=== PATIENT | female | born 1985 | race African-American/Black ===

== ENCOUNTER 2016-07-28 14:12 | Inpatient (IN) | payer OTHER ==
--- NOTE | ~2016-07-28 | PN ---
Unit #: [id number] #: [id number] Patient: GAUDENCIO RODRIGUEZ [id number] [facility] [address] [place] [address] [id number] I MR#: [id number] NAME: GAUDENCIO RODRIGUEZ ROOM: [facility]3 Age: 30 Sex: F Admission Date: 07/28/2016 : 1985 Attending Physician: Berhane Lord M.D. Admitting Physician: Berhane Lord M.D. Primary Care Physician: Generic Doctor Not In System [facility] PROGRESS NOTES DATE OF SERVICE 08/03/2016 DISCUSSION Ms. Gaudencio Rodriguez is a 30-year-old female seen on 08/03/2016. The patient interviewed, chart reviewed. Obtained information from nursing staff. The patient was compliant, cooperative. Mood sad, dysphoric, isolative, guarded. The patient reported that she is still hearing voices. Voices telling her to harm herself. The patient was given p.r.n. Zyprexa Zydis 10 mg now dose. Complete Review of Systems: Unremarkable. MENTAL STATUS EXAMINATION General Appearance: The patient dressed casually. Attention span, concentration: Fair to poor. Oriented in place and person. Mood and affect: Sad, dysphoric, flat. Speech: Monotone. Thought process: [place]. The patient reported having suicidal ideation, command hallucination. Recent and remote memory: Poor. Insight and judgment: Poor. DIAGNOSIS Schizophrenia, chronic, paranoid type. ASSESSMENT/PLAN Advised to increase Clozaril 200 mg in the morning and 200 mg at bedtime. Advise Zyprexa Zydis 10 mg now. We will continue to follow. If needed, consider further adjustment of medication. Continue with the inpatient program for safety of the patient at this time. Dictated by... Drea Johnson/dania TD: 08/04/2016 13:34 JOB #: [id number] Unit #: [id number] #: [id number] Patient: GAUDENCIO RODRIGUEZ PROGRESS NOTES Page 1 of 1 X Berhane Lord MD X PROGRESS NOTE
--- NOTE | ~2016-07-28 | PA ---
Unit #: [id number] #: [id number] Patient: GAUDENCIO GIRALDO [id number] [facility] [address] [place] [address] [id number] I MR#: [id number] NAME: GAUDENCIO GIRALDO ROOM: [facility]3 Age: 30 Sex: F Admission Date: 07/28/2016 : 1985 Date of Assessment: Attending Physician: Berhane Lord M.D. Admitting Physician: Berhane Lord M.D. PSYCHIATRIC ASSESSMENT INFORMANTS The patient reliability, poor informant and chart reliability, good. CHIEF COMPLAINT Thoughts of harming self and hearing voices. HISTORY OF PRESENT ILLNESS Ms. Gaudencio Giraldo is a 30-year-old female, seen on . The patient has a history of outpatient services in 2007 at [facility]. The patient reports she had no medicine and not been in the hospital for the last 10 years. The patient reports that she attempted to kill herself, hearing voices to kill herself. The patient reported "I want to ." The patient reported that she has been feeling suicidal, reported she holds stuff and reports letting it out today. The patient was agitated, mad, angry, and disorganized thought process and behavior. The patient was agitated, increasingly aggressive, independently hitting franco, needing redirection. Unable to give reliable information. Needing admission at this time for psychiatric stabilization. PAST PSYCHIATRIC HISTORY Remarkable for history of previous treatment from [facility] in 2007. FAMILY HISTORY AND SOCIAL HISTORY The patient has poor support system. History of substance abuse in mother. No history of any abuse known at this time. MEDICAL HISTORY Unremarkable for any chronic medical illness. Musculoskeletal; muscle strength and tone, no atrophy or abnormal movement. Gait normal. MEDICATION HISTORY The patient is currently on Minipress 1 mg at bedtime, Luvox 100 mg at bedtime, Clozaril 200 mg at bedtime, Cogentin 1 mg b.i.d., Topamax 100 mg t.i.d., and fluphenazine decanoate 25 mg q.21 days. The patient is also on Adderall. ALLERGIES No known drug allergies. SUBSTANCE ABUSE HISTORY None. Unit #: [id number] #: [id number] Patient: MICHAEL,KENYANA REVIEW OF SYSTEMS HEENT: Eyes, clear. Ears, nose, mouth, and throat; clear. CARDIOVASCULAR: Unremarkable. RESPIRATORY: Unremarkable. GI: Unremarkable. : Unremarkable. SKIN: Unremarkable. LYMPH NODE: Unremarkable. NEUROLOGIC: Unremarkable. ENDOCRINE: Unremarkable. HEMATOLOGIC: Unremarkable. ALLERGIC/IMMUNOLOGIC: Unremarkable. MUSCULOSKELETAL: Muscle strength and tone, no atrophy or abnormal movement. Gait normal. MENTAL STATUS EXAMINATION CONSTITUTIONAL: Measurement of vital signs; temperature 98.0, heart rate 119, respiratory rate 16, oxygen saturation 100%, and blood pressure 155/95. Height 5 feet 9 inches and weight is 215 pounds. GENERAL APPEARANCE: The patient dressed casually. The patient did not show any facial deformity. PSYCHIATRIC EXAMINATION Description of speech, slow in volume. Description of thought process, circumstantial. Description of association; guarded, paranoid, mood lability, delusional, aggression, and self-harming behavior. Description of the patient's judgment: Concerning everyday activity, poor. Social situation, poor. Concerning psychiatric condition, poor. Complete mental status examination; orientation in self. Attention span and concentration, poor. Language, fair. Fund of knowledge, poor. Vocabulary, poor. Mood and affect, sad and dysphoric. Insight and judgment, fair to poor. ASSETS AND LIABILITIES Assets, the patient is articulate and able to take care of her ADL. Liability, history of depression and psychosis. ADMITTING DIAGNOSES Psychiatric: Schizophrenia, chronic paranoid type, F20.0. Secondary diagnosis: Deferred. Medical diagnosis: None. Stressors: Psychosocial stressors. PSYCHIATRIC PLAN AND TREATMENT GOAL AND DISCHARGE PLAN 1. Advised to admit the patient on the inpatient unit. Provide safe, supportive, and structured environment. 2. Ordered labs; CBC, CMP, UA, UDS, and test. 3. Advised to continue with current medication with a plan to consider adjusting the dosage of medication. If needed, advised to discontinue Adderall at this time. Monitor for aggression, self-harm, and psychosis precaution. 4. The patient to attend all the programing on the inpatient unit, group therapy, individual therapy, and medication management. Unit #: [id number] #: [id number] Patient: GAUDENCIO GIRALDO DISCHARGE PLAN Plan to stabilize the patient and consider followup in outpatient program. ESTIMATED LENGTH OF STAY 2 weeks. Dictated by... Drea JohnsonC/maeve TD: 07/29/2016 18:11 JOB #: [id number] PSYCHIATRIC ASSESSMENT Page 1 of 1 X Berhane Lord MD PSYCHIATRIC ASSESSMENT
--- NOTE | ~2016-07-28 | PN ---
Unit #: [id number] #: [id number] Patient: GAUDENCIO RODRIGUEZ [id number] [facility] [address] [place] [address] [id number] I MR#: [id number] NAME: GAUDENCIO RODRIGUEZ ROOM: P123 Age: 30 Sex: F Admission Date: 07/28/2016 : 1985 Attending Physician: Berhane Lord M.D. Admitting Physician: Berhane Lord M.D. Primary Care Physician: Generic Doctor Not In System [facility] PROGRESS NOTES DATE 08/05/2016 DISCUSSION Gaudencio Rodriguez is a 30-year-old female seen on 08/05/2016. Patient continues to be guarded, paranoid, flat affect, isolative. Patient received p.r.n. for hallucination yesterday. Complete review of systems unremarkable. MENTAL STATUS EXAMINATION General appearance: Patient is dressed casually. Attention span and concentration fair. Oriented in place and person. Mood and affect sad and dysphoric. Speech monotone. Thought process concrete. Patient reported having hallucinations and suicidal ideation. Recent and remote memory poor. Insight and judgement poor. DIAGNOSIS Schizophrenia, chronic, paranoid type. ASSESSMENT AND PLAN Advise to continue with current medication and therapeutic protocol. If needed, consider further adjustment of medication. Dictated by... Drea Johnson/huyen TD: 08/06/2016 10:30 JOB #: [id number] [facility] PROGRESS NOTES Page 1 of 1 X Berhane Lord MD X PROGRESS NOTE
--- NOTE | ~2016-07-28 | HP ---
Unit #: [id number] #: [id number] Patient: GAUDENCIO RODRIGUEZ [id number] [place] [address] [id number] I MR#: [id number] NAME: GAUDENCIO RODRIGUEZ ROOM: P123 Age: 30 Sex: F Admission Date: 07/28/2016 : 1985 Attending Physician: Berhane Lord M.D. Admitting Physician: Berhane Lord M.D. Primary Care Physician: Generic Doctor Not In System HISTORY AND PHYSICAL HISTORY OF PRESENT ILLNESS Gaudencio is a 30 year old admitted to [address] [place] [address] after reporting auditory hallucinations and wanting to hurt herself. Her last admission to [facility] was in 2007. PAST MEDICAL HISTORY 1. Morbid obesity. 2. Remote history of seizures as a child. 3. Asthma. 4. High blood pressure. PAST SURGICAL HISTORY Nothing reported. ALLERGIES No known drug allergies. SOCIAL HISTORY She does not smoke. Admits to alcohol and illicit drug use. FAMILY HISTORY Medically noncontributory. REVIEW OF SYSTEMS CONSTITUTIONAL: No fever or chills. HEENT: Denies any sore throat, ear pain or runny nose. CARDIOVASCULAR: Denies chest pain, irregular heart rhythm or palpitations. CHEST: Denies shortness of breath or cough. No hemoptysis. GASTROINTESTINAL: Denies nausea, vomiting, diarrhea or chronic constipation. ENDOCRINE: Denies history of increased thirst or urination. No recent significant weight loss or gain. GENITOURINARY: Denies dysuria, frequency, or hematuria. SKIN: Denies any rashes. HEMATOLOGIC: Denies history of increased bleeding or bruising. MUSCULOSKELETAL: Denies any hot, swollen joints. No generalized muscle pain. NEUROLOGIC: Denies problems with vision or speech. No frequent, severe headaches. No numbness, tingling or weakness in any extremities. Denies loss of bladder or bowel control. CURRENT MEDICATIONS 1. Minipress 1 mg q.h.s. Unit #: [id number] #: [id number] Patient: GAUDENCIO RODRIGUEZ 2. Luvox 100 mg q.h.s. 3. Clozaril 200 mg q.h.s. 4. Cogentin 1 mg b.i.d. 5. Topamax 100 mg t.i.d. 6. Lorazepam p.r.n. 7. Fluphenazine 25 mg IM q. 21 days. 8. Milk of Magnesia p.r.n. 9. Maalox p.r.n. 10. Tylenol p.r.n. PHYSICAL EXAMINATION GENERAL: Alert, obese, hair is bleached, no apparent distress. VITAL SIGNS: Blood pressure 154/94, heart rate 80, respirations 16, temperature 98.6. WEIGHT: 215. HEIGHT: 5 feet 9 inches. SKIN: Warm and dry without rash or lesion. HEENT: Normocephalic. TMs not viewed. Oral and nasal passages clear. Conjunctivae clear. PERRLA. EOMs intact. NECK: Supple without lymphadenopathy or thyromegaly. HEART: Regular rate and rhythm without murmur. LUNGS: Clear. ABDOMEN: Soft, nontender. : Not done. EXTREMITIES: No evidence of cyanosis, clubbing or edema. Moves all without focal deficit. NEUROLOGICAL: Grossly within normal limits. Cranial Nerves: II: Visual macias are intact. III, IV AND : Extraocular movements are intact. Pupils are equal, round and reactive to light. V: Facial sensation is grossly normal. VII: Facial movements and expression are normal. VIII: Auditory acuity grossly intact. IX, X: Uvula is midline. Phonation is normal. XI: Patient shrugs shoulders and turns head normally. XII: Tongue protrudes in the midline. Sensory and Motor Function: Sensory and motor sensation is grossly normal. Motor: moves all extremities well. Coordination: Gait is normal. Deep Tendon Reflexes: Intact. IMPRESSION Psychiatric admission. RECOMMENDATIONS PSYCHIATRIC: Per psychiatrist. MEDICAL: See no contraindication to participate in facility's activities. MEDICAL PROGNOSIS Good. MEDICAL CONDITION Stable. Dictated by... Ally Gonsales P.A.-C. for Ana María Garcia M.D. Unit #: [id number] #: [id number] Patient: GAUDENCIO RODRIGUEZGERSON/dz TD: 07/29/2016 17:40 JOB #: [id number] HISTORY AND PHYSICAL Page 1 of 1 X Ally Gonsales X HISTORY AND PHYSICAL
--- NOTE | ~2016-07-28 | PN ---
Unit #: [id number] #: [id number] Patient: GAUDENCIO RODRIGUEZ [id number] [facility] [address] [place] [address] [id number] I MR#: [id number] NAME: GAUDENCIO RODRIGUEZ ROOM: [facility]3 Age: 30 Sex: F Admission Date: 07/28/2016 : 1985 Attending Physician: Berhane Lord M.D. Admitting Physician: Berhane Lord M.D. Primary Care Physician: Generic Doctor Not In System [facility] PROGRESS NOTES DATE OF SERVICE: 07/31/2016 DISCUSSION Ms. Gaudencio Rodriguez is a 30-year-old female, seen on 07/31/2016. The patient interviewed, chart reviewed, and obtained information from nursing staff. The patient was compliant and cooperative. Mood was sad and dysphoric. The patient was withdrawn, isolative, guarded, paranoid, refusing to take her medication this morning, still having psychotic symptom, paranoia, mood lability. The patient was isolative, according to staff, staying by herself, minimal interaction. The patient's vital signs, the patient refused. Still seclusive, isolative, guarded. Complete review of systems unremarkable. MENTAL STATUS EXAMINATION General appearance, the patient dressed casually in hospital attire. Attention span and concentration, poor. Orientation in place and person. Mood and affect, labile. Speech, slow. Thought process, circumstantial. Association; guarded, paranoid, isolative, seclusive, attending to internal stimuli. Recent and remote memory, poor. Insight and judgment, poor. DIAGNOSIS Schizophrenia, chronic paranoid type. ASSESSMENT AND PLAN Advised to continue with current medications and therapeutic protocol. If needed, consider further adjustment of medications. The patient is currently on Clozaril 200 mg at bedtime, Topamax, Cogentin, and Desyrel. Dictated by... Berhane Lord M.D. MIKEL/maeve TD: 07/31/2016 18:04 JOB #: [id number] Unit #: [id number] #: [id number] Patient: GAUDENCIO RODRIGUEZ [facility] NOTES Page 1 of 1 X Berhane Lord MD PROGRESS NOTE
--- NOTE | ~2016-07-28 | DS ---
Unit #: [id number] #: [id number] Patient: GAUDENCIO RODRIGUEZ [id number] [place] [address] [id number] I MR#: [id number] NAME: GAUDENCIO RODRIGUEZ ROOM: [facility]3 Age: 30 Sex: F Admission Date: 07/28/2016 : 1985 Discharge Date: 08/10/2016 Attending Physician: Berhane Lord M.D. Primary Care Physician: Generic Doctor Not In System DISCHARGE SUMMARY REASON FOR ADMISSION Psychosis. DIAGNOSTIC STUDIES LABORATORY RESULTS: Unremarkable except total protein 5.9. HOSPITAL COURSE The patient was admitted to inpatient unit on 07/28/2016 and discharged on 08/10/2016. The patient was treated on the inpatient unit with group therapy, individual therapy, medication management. The patient was responsive to treatment, maintained safe behavior. Subsequently, the patient was discharged with a plan to follow up through [facility]. DISCHARGE MEDICATIONS Clozaril 200 mg at bedtime and 100 mg in the morning for psychosis, Topamax 100 mg t.i.d. for mood stabilization, Minipress 1 mg at bedtime for night terrors, trazodone 100 mg at bedtime for sleep, Lexapro 10 mg daily for depression, Colace 100 mg b.i.d. for constipation, MiraLAX 17 g b.i.d. for constipation. The patient was discharged on 2 antipsychotic as the patient did not do well, plan to taper off Thorazine over the next 6 months. The patient is currently on Clozaril. DISCHARGE DIAGNOSES Psychiatric: Schizophrenia, chronic paranoid type, F20.0. Secondary diagnosis: Deferred. Medical diagnosis: None. Stressors: Psychosocial stressors. DISCHARGE INSTRUCTIONS The patient to follow up in outpatient clinic as per social work therapist. CONDITION ON DISCHARGE The patient was pleasant and cooperative. Denied any psychotic symptom or any suicidal ideation. PROGNOSIS Guarded. DIET AND ACTIVITY As tolerated. Unit #: [id number] #: [id number] Patient: GAUDENCIO RODRIGUEZ Dictated by... Drea Johnson/maeve TD: 08/11/2016 02:18 JOB #: [id number] DISCHARGE SUMMARY Page 1 of 1 X Berhane Lord MD DISCHARGE SUMMARY
--- NOTE | ~2016-07-28 | PN ---
Unit #: [id number] #: [id number] Patient: GAUDENCIO RODRIGUEZ [id number] [facility] [address] [place] [address] [id number] I MR#: [id number] NAME: GAUDENCIO RODRIGUEZ ROOM: [facility]3 Age: 30 Sex: F Admission Date: 07/28/2016 : 1985 Attending Physician: Berhane Lord M.D. Admitting Physician: Berhane Lord M.D. Primary Care Physician: Generic Doctor Not In System [facility] PROGRESS NOTES DATE OF SERVICE 08/02/2016 DISCUSSION Ms. Gaudencio Rodriguez is a 30-year-old female seen on 08/02/2016. The patient continues to be isolative, guarded, flat affect. The patient reported hearing voices and suicidal ideation. The patient reported still feeling sad, depressed. Complete Review of Systems: Unremarkable. MENTAL STATUS EXAMINATION General Appearance: The patient dressed casually. Hygiene and grooming poor. Withdrawn, isolative, guarded. Attention span, concentration: Poor. Oriented in place and person. Mood and affect: Sad, dysphoric, flat. Speech: Monotone. Thought process: [place]. The patient denied any thoughts of harming others but having suicidal ideation. Guarded, paranoid, hallucinations. Recent and remote memory: Poor. Insight and judgment: Poor. DIAGNOSES 1. Schizophrenia, chronic, paranoid type. 2. Mood disorder not otherwise specified. ASSESSMENT/PLAN Advised to continue with current medication with a plan to switch Luvox to Lexapro 10 mg daily. If needed, consider further adjustment of medication. Dictated by... Drea Johnson/dania TD: 08/03/2016 12:47 JOB #: [id number] Unit #: [id number] #: [id number] Patient: GAUDENCIO RODRIGUEZ [facility] PROGRESS NOTES Page 1 of 1 X Berhane Lord MD PROGRESS NOTE
--- NOTE | ~2016-07-28 | CO ---
Unit #: [id number] #: [id number] Patient: GAUDENCIO RODRIGUEZ [id number] [place] [address] [id number] I MR#: [id number] NAME: GAUDENCIO RODRIGUEZ ROOM: [facility]3 Age: 30 Sex: F Admission Date: 07/28/2016 : 1985 Attending Physician: Berhane Lord M.D. Primary Care Physician: Generic Doctor Not In System Consultation Date: 08/07/2016 CONSULTATION REPORT JOB NOTE: DICTATED FOR NOT DICTATED SUBJECTIVE Gaudencio is a 30-year-old who had complained of some head and chest congestion with small amounts of clear nasal drainage and nonproductive cough over the past 24 to 48 hours. She denies any shortness of breath, and she has had no recorded increased temperatures. We have been asked to assess and treat. OBJECTIVE GENERAL: Alert, well nourished, in no apparent distress. VITAL SIGNS: Blood pressure 120/70, heart rate 80, respirations 16, and temperature 98.6. HEENT: Normocephalic. TMs not viewed. Oral and nasal passages are clear except for small amounts of clear drainage. NECK: Supple without lymphadenopathy. CHEST: Lungs clear. ASSESSMENT Viral upper respiratory tract infection versus allergic. PLAN Tessalon Perles 200 mg one p.o. t.i.d. x3 days. Dictated by... Ally Gonsales P.A.-C. for Drea Sorenson/maeve TD: 08/08/2016 15:01 JOB #: [id number] CONSULTATION REPORT Page 1 of 1 X Ally Gonsales CONSULTATION REPORT
--- NOTE | ~2016-07-28 | PN ---
Unit #: [id number] #: [id number] Patient: GAUDENCIO GIRALDO [id number] [facility] [address] [place] [address] [id number] I MR#: [id number] NAME: GAUDENCIO GIRALDO ROOM: [facility]3 Age: 30 Sex: F Admission Date: 07/28/2016 : 1985 Attending Physician: Berhane Lord M.D. Admitting Physician: Drea Johnson PROGRESS NOTES DATE OF SERVICE: 07/29/2016 DISCUSSION Ms. Gaudencio Giraldo is a 30-year-old female, seen on 07/29/2016. The patient was aggressive, agitated, hitting franco, mood lability, paranoid, guarded, and aggressive. REVIEW OF SYSTEMS Complete review of systems unremarkable. MENTAL STATUS EXAMINATION General appearance, the patient dressed casually. Attention span and concentration, poor. Orientation, unable to assess. Mood and affect, labile. Speech, rapid. Thought process; circumstantial, guarded, delusional, paranoid, and aggressive. Recent and remote memory, poor. Insight and judgment, poor. DIAGNOSIS Schizophrenia, chronic paranoid type. ASSESSMENT AND PLAN Advised to continue with current medication and therapeutic protocol with a plan to give Haldol 10 mg, Cogentin 1 mg, and Ativan 1 mg deep intramuscular. We will continue to follow. If needed, consider further adjustment of medication. Dictated by... Drea Johnson/maeve TD: 07/29/2016 20:03 JOB #: [id number] Unit #: [id number] #: [id number] Patient: GAUDENCIO GIRALDO PROGRESS NOTES Page 1 of 1 X Berhane Lord MD PROGRESS NOTE
--- NOTE | ~2016-07-28 | CO ---
Unit #: [id number] #: [id number] Patient: GAUDENCIO RODRIGUEZ [id number] [facility] [address] [place] [address] [id number] I MR#: [id number] NAME: GAUDENCIO RODRIGUEZ ROOM: P123 Age: 30 Sex: F Admission Date: 07/28/2016 : 1985 Attending Physician: Berhane Lord M.D. Primary Care Physician: Generic Doctor Not In System Consultation Date: 08/09/2016 CONSULTATION REPORT JORGE Mata is a 30-year-old who complains today of constipation. She has milk of magnesia already ordered and MiraLAX has been added. Dictated by... Ally Gonsales P.A.-C. for Drea Sorenson/maeve TD: 08/10/2016 00:01 JOB #: [id number] CONSULTATION REPORT Page 1 of 1 X Ally Gonsales CONSULTATION REPORT
--- NOTE | ~2016-07-28 | PN ---
Unit #: [id number] #: [id number] Patient: GAUDENCIO RODRIGUEZ [id number] [facility] [address] [place] [address] [id number] I MR#: [id number] NAME: GAUDENCIO RODRIGUEZ ROOM: P123 Age: 30 Sex: F Admission Date: 07/28/2016 : 1985 Attending Physician: Berhane Lord M.D. Admitting Physician: Berhane Lord M.D. Primary Care Physician: Generic Doctor Not In System [facility] PROGRESS NOTES DATE OF SERVICE 08/01/2016 DISCUSSION Ms. Gaudencio Rodriguez is a 30-year-old female seen on 08/01/2016. Patient interviewed, chart reviewed, obtained information from nursing staff. Patient continues to be isolative, guarded, flat affect, withdrawn. Patient tolerating medication fairly well. COMPLETE REVIEW OF SYSTEMS Unremarkable. MENTAL STATUS EXAMINATION GENERAL APPEARANCE: Patient dressed casually. Hygiene and grooming poor. Oriented in place and person. MOOD AND AFFECT: Sad, dysphoric, flat. SPEECH: Monotone. THOUGHT PROCESS: [place]. ASSOCIATION: Patient denied any thoughts of harming self or others, but guarded, paranoid, delusional, isolative, seclusive. RECENT AND REMOTE MEMORY: Poor. INSIGHT AND JUDGMENT: Poor. DIAGNOSIS Schizophrenia, chronic, paranoid type ASSESSMENT/PLAN Advised to continue with current medication and therapeutic protocol. If needed, will consider further adjustment in medication. Dictated by... Drea Johnson/maddie TD: 08/02/2016 22:11 JOB #: [id number] Unit #: [id number] #: [id number] Patient: GAUDENCIO RODRIGUEZ [facility] PROGRESS NOTES Page 1 of 1 X Berhane Lord MD PROGRESS NOTE
--- NOTE | ~2016-07-28 | PN ---
Unit #: [id number] #: [id number] Patient: GAUDENCIO RODRIGUEZ [id number] [facility] [address] [place] [address] [id number] I MR#: [id number] NAME: GUADENCIO RODRIGUEZ ROOM: [facility]3 Age: 30 Sex: F Admission Date: 07/28/2016 : 1985 Attending Physician: Berhane Lord M.D. Admitting Physician: Berhane Lord M.D. Primary Care Physician: Generic Doctor Not In System [facility] PROGRESS NOTES DATE OF SERVICE: 08/08/2016 DISCUSSION Ms. Gaudencio Rodriguez is a 30-year-old female, seen on 08/08/2016. The patient interviewed, chart reviewed, and obtained information from nursing staff. The patient was guarded, paranoid. Reported still hearing voices telling her to harm herself. The patient continues on highest precaution to keep her safe. The patient received Prolixin shot on 08/07/2016. The patient's behavior was disruptive and impulsive. Complete review of systems unremarkable. MENTAL STATUS EXAMINATION General appearance, the patient dressed casually in hospital attire. Attention span and concentration, poor. Orientation in place and person. Mood and affect, labile. Speech, rapid. Thought process, circumstantial. The patient reported having suicidal ideation, auditory hallucination, command hallucination. Recent and remote memory, poor. Insight and judgment, poor. DIAGNOSES 1. Schizophrenia chronic paranoid type. 2. Mood disorder, not otherwise specified. ASSESSMENT AND PLAN Advised to continue with current medication and therapeutic protocol. Continue with highest precaution to keep the patient safe. Dictated by... Drea Johnson/maeve TD: 08/08/2016 18:14 JOB #: [id number] Unit #: [id number] #: [id number] Patient: GAUDENCIO RODRIGUEZ [facility] PROGRESS NOTES Page 1 of 1 X Berhane Lord MD PROGRESS NOTE
--- NOTE | ~2016-07-28 | PN ---
Unit #: [id number] #: [id number] Patient: GAUDENCIO RODRIGUEZ [id number] [facility] [address] [place] [address] [id number] I MR#: [id number] NAME: GAUDENCIO RODRIGUEZ ROOM: P123 Age: 30 Sex: F Admission Date: 07/28/2016 : 1985 Attending Physician: Berhane Lord M.D. Admitting Physician: Berhane Lord M.D. Primary Care Physician: Generic Doctor Not In System [facility] PROGRESS NOTES DATE 08/06/2016 DISCUSSION Ms. Gaudencio Rodriguez is a 30-year-old female, seen on 08/06/2016. The patient interviewed, chart reviewed, and obtained information from the nursing staff. The patient was compliant and cooperative. Mood was labile, flat, sad, dysphoric. The patient reported hearing voices telling her to harm herself, still reporting medication is not helping. Vital signs, stable, 98.1, 116, 20, and 108/68. REVIEW OF SYSTEMS Complete review of systems unremarkable. MENTAL STATUS EXAMINATION General appearance: Patient dressed in hospital attire. Attention span and concentration, fair. Orientation in place and person. Mood and affect, labile. Speech, rapid. Thought process, circumstantial. Association, guarded, paranoid, suicidal ideation, hallucinations. Recent and remote memory, poor. Insight and judgment, poor. ASSESSMENT/PLAN Advised to continue with the current medication combination, if needed consider further adjustment of medication, plan to add Thorazine 100 mg three times a day. Dictated by... Drea Johnson/jasmina TD: 08/07/2016 07:25 JOB #: [id number] Unit #: [id number] #: [id number] Patient: GAUDENCIO RODRIGUEZ [facility] PROGRESS NOTES Page 1 of 1 X Berhane Lord MD PROGRESS NOTE
--- NOTE | ~2016-07-28 | A ---
[facility] Nutrition Therapy DATE: 08/07/16 Patient: GAUDENCIO MICHAEL Physician: DAYSI Address: [address] [place] [address] Room/Bed: [address], Zip: [place] [address] Admit Date: 07/28/16 Date of : [birth year] Height: 5 11 Weight: 168 76.204 NUTRITIONAL ASSESSMENT: REASON: LENGTH OF STAY PATIENT ADMITTED FOR SI AND AUDITORY HALLUCINATIONS PMH: HTN, ASTHMA Anthropometrics: HT: 5'9", WT: 168#, BMI: 24.8, %IBW: 116 Labs: 07/29/16- BN: 8, ALB: 3.3 Meds: THORAZINE, COLAZRIL, DESYREL, COGENTIN, TOPAMAX Assessment: PATIENT IS A 30 Y/O FEMALE ADMITTED FOR SI AND AUDITORY HALLUCINATIONS. PATIENT IS CURRENTLY ON DISABILITY, LIVES WITH HER MOTHER, AND DENIES ALL SUBSTANCE ABUSE. IT IS NOTED THAT PATIENT HAS BEEN NON-COMPLIANT WITH MEDICATIONS PRIOR TO ADMIT AND SHE HAS A HX OF INPATIENT/OUTPATIENT PSYCH TREATMENT. UPON ADMIT PATIENT STATED A POOR APPETITE WITH AN UKNOWN AMOUNT OF WEIGHT LOSS AND SHE HAD NOT BEEN SLEEPING. NURSING REPORTS FAIR-GOOD PO INTAKES. PATIENT CONTINUES TO EXHIBIT PARANOIA AND AUDITORY HALLUCINATIONS. THERE ARE NO SKIN OR GI ISSUES NOTED ATT. PATIENT IS ON A REGULAR DIET. Dx: NO NUTRITION DX Intervention: REGULAR DIET, MEDS PER MD, PSYCH Monitoring, Evaluation and Goals: 1. ADEQUATE PO INTAKES >50% OF MEALS 2. PREVENT, CORRECT MICRO/MACRO NUTRIENT DEFICIENCIES MONITOR: WEIGHTS, LABS, PO/FLUID INTAKES Recommendations: 1. CONTINUE REGULAR DIET TOLERATED 2. ENCOURAGE ADEQUATE PO AND FLUID INTAKES RD TO F/U PER PROTOCOL AND PRN R/T PATIENT NOT AT NUTRITIONAL RISK ATT Respectfully, [facility] Nutrition Therapy DATE: 08/07/16 Patient: GAUDENCIO RODRIGUEZ Physician: DAYSI Address: [address] [place] [address] Room/Bed: [address], Zip: [place] [address] Admit Date: 07/28/16 Date of : [birth year] Height: 5 11 Weight: 168 76.204 MARQUEZ ANG, AMIRA, LD [facility] cc: client file
--- NOTE | ~2016-07-28 | PN ---
Unit #: [id number] #: [id number] Patient: GAUDENCIO RODRIGUEZ [id number] [facility] [address] [place] [address] [id number] I MR#: [id number] NAME: GAUDENCIO RODRIGUEZ ROOM: [facility]3 Age: 30 Sex: F Admission Date: 07/28/2016 : 1985 Attending Physician: Berhane Lord M.D. Admitting Physician: Berhane Lord M.D. Primary Care Physician: Generic Doctor Not In System [facility] PROGRESS NOTES DATE OF SERVICE: 07/30/2016 DISCUSSION Ms. Gaudencio Rodriguez is a 30-year-old female, seen on 07/30/2016. The patient interviewed, chart reviewed, and obtained information from nursing staff. The patient continues to be drowsy, sleepy, isolative, guarded, flat affect. The patient received p.r.n. Haldol yesterday. Vital signs, the patient refused. The patient's behavior continues to be poor boundaries, oppositional, impulsive, noncompliant, guarded, paranoid, mood lability, hearing voices. Complete review of systems unremarkable. MENTAL STATUS EXAMINATION General appearance, the patient dressed casually. Attention span and concentration, fair. Oriented in place and person. Mood and affect were labile. Speech, monotone. Thought process, concrete. The patient denied any thoughts of harming self or others. Recent and remote memory, fair. Insight and judgment, fair to poor. DIAGNOSIS Bipolar mood disorder, not otherwise specified. ASSESSMENT AND PLAN Advised to continue with current medication and therapeutic protocol. If needed, consider further adjustment of medication. Dictated by... Drea Johnson/maeve TD: 07/31/2016 20:23 JOB #: [id number] Unit #: [id number] #: [id number] Patient: GAUDENCIO RODRIGUEZ [facility] PROGRESS NOTES Page 1 of 1 X Berhane Lord MD PROGRESS NOTE
--- NOTE | ~2016-07-28 | PN ---
Unit #: [id number] #: [id number] Patient: GAUDENCIO RODRIGUEZ [id number] [facility] [address] [place] [address] [id number] I MR#: [id number] NAME: GAUDENCIO RODRIGUEZ ROOM: P123 Age: 30 Sex: F Admission Date: 07/28/2016 : 1985 Attending Physician: Berhane Lord M.D. Admitting Physician: Berhane Lord M.D. Primary Care Physician: Generic Doctor Not In System [facility] PROGRESS NOTES DATE OF SERVICE 08/09/2016 DISCUSSION Ms. Gaudencio Rodriguez is a 30-year-old female seen on 08/09/2016. The patient interviewed, chart reviewed. Obtained information from nursing staff. The patient continues to report hearing voices but denied any suicidal ideation, but withdrawn, isolative, guarded. Wanted her medication to be changed. No side effects from medication. Reported having problem with constipation. Currently on MiraLAX and Colace combination. Complete Review of Systems: Unremarkable. MENTAL STATUS EXAMINATION General Appearance: The patient dressed casually in hospital attire. Attention span, concentration: Fair. Oriented in place and person. Mood and affect labile. Speech: Monotone. Thought process: [place]. The patient denied any suicidal ideation today, but guarded, paranoid. Passive SI. Reporting hearing voices. Recent and remote memory: Poor. Insight and judgment: Poor. DIAGNOSES 1. Schizophrenia, chronic, paranoid type. 2. Mood disorder not otherwise specified. ASSESSMENT/PLAN Advised to continue with current medication at this time. If needed, consider further adjustment of medication. Dictated by... Drea Johnson/dania TD: 08/10/2016 09:17 JOB #: [id number] Unit #: [id number] #: [id number] Patient: GAUDENCIO RODRIGUEZ [facility] PROGRESS NOTES Page 1 of 1 X Berhane Lord MD PROGRESS NOTE
--- NOTE | ~2016-07-28 | PN ---
Unit #: [id number] #: [id number] Patient: GAUDENCIO RODRIGUEZ [id number] [facility] [address] [place] [address] [id number] I MR#: [id number] NAME: GAUDENCIO RODRIGUEZ ROOM: [facility]3 Age: 30 Sex: F Admission Date: 07/28/2016 : 1985 Attending Physician: Berhane Lord M.D. Admitting Physician: Berhane Lord M.D. Primary Care Physician: Generic Doctor Not In System [facility] PROGRESS NOTES DATE OF SERVICE: 08/04/2016 DISCUSSION Ms. Gaudencio Rodriguez is a 30-year-old female. The patient interviewed, chart reviewed, and obtained information from nursing staff. The patient continues to report hearing voices, paranoia, voices telling her to harm herself, isolative, guarded. Complete review of systems unremarkable. MENTAL STATUS EXAMINATION General appearance, the patient dressed casually in hospital attire. Attention span and concentration, poor. Mood and affect; sad, dysphoric, flat. Speech, monotone. Thought process, concrete. The patient reported having command hallucination and suicidal ideation. Recent and remote memory, poor. Insight and judgment, poor. DIAGNOSES 1. Schizophrenia, chronic paranoid type. 2. Mood disorder, not otherwise specified. ASSESSMENT AND PLAN Advised to continue with current medication and therapeutic protocol. If needed, consider further adjustment of medication. Dictated by... Drea Johnson/maeve TD: 08/04/2016 16:39 JOB #: [id number] [facility] PROGRESS NOTES Page 1 of 1 X Berhane Lord MD PROGRESS NOTE
--- NOTE | ~2016-07-28 | PN ---
Unit #: [id number] #: [id number] Patient: GAUDENCIO RODRIGUEZ [id number] [facility] [address] [place] [address] [id number] I MR#: [id number] NAME: GAUDENCIO RODRIGUEZ ROOM: P123 Age: 30 Sex: F Admission Date: 07/28/2016 : 1985 Attending Physician: Berhane Lord M.D. Admitting Physician: Berhane Lord M.D. Primary Care Physician: Generic Doctor Not In System [facility] PROGRESS NOTES DATE OF SERVICE: 08/07/2016 DISCUSSION Ms. Gaudencio Rodriguez is a 30-year-old female, seen on 08/07/2016. The patient interviewed, chart reviewed, and obtained information from nursing staff. The patient continues to report hearing voices telling her to harm herself. The patient continues to have vomiting sensation, mood lability, agitation, irritability, compliant with medication. Complete review of systems unremarkable. MENTAL STATUS EXAMINATION General appearance, the patient dressed casually. Attention span and concentration, poor. Oriented in place and person. Mood and affect, labile. Speech, rapid. Thought process, circumstantial. The patient reported having suicidal ideation and command hallucination. Recent and remote memory, poor. Insight and judgment, poor. DIAGNOSIS Schizophrenia, chronic paranoid type. ASSESSMENT AND PLAN Advised to continue with current medication and therapeutic protocol. If needed, consider further adjustment of medication. Dictated by... Drea Johnson/maeve TD: 08/07/2016 20:19 JOB #: [id number] Unit #: [id number] #: [id number] Patient: GAUDENCIO RODRIGUEZ [facility] PROGRESS NOTES Page 1 of 1 X Berhane Lord MD PROGRESS NOTE
[~2016-07-28 14:12] MED LIST: CIPRO PO; DALMANE30 MG PO; DIAZEPAM PO; GEODAN; MEDROL4 MG/DOSE- PO; ORUDIS75 M1 PO; PHENERGAN25 MG PO; PROLIXIN10 MG PO; PYRIDIUM PO; RITALIN PO; ROBITUSSIN A-C-S1 ML PO; TOPAMAX; UNABLE TO VERIFY; VICODIN 5/1 TAB 5/50 PO; VISTARIL; ZITHROMAX1 G/PKT PO; ZOLOFT PO
[2016-07-29 11:18] LABS: BASOPHIL# 0.1 X10e3 (0-0.3); BASOPHIL% 1.4 % (0-2.5); EOSINOPHIL# 0.4 X10e3 (0-0.7); HEMATOCRIT 34.3 % (35.0-45.0); HEMOGLOBIN 11.3 gm/dL (12.0-16.0); LYMPHOCYTE# 1.8 X10e3 (1.0-3.5); LYMPHOCYTE% 33.9 % (17.0-45.0); MEAN CELL VOLUME 94.6 FL (83-96); MEAN CORPUSCULAR HEMOGLOBIN 31.1 PG (28-34); MEAN CORPUSCULAR HGB CONC 32.9 g/dL (30-36); MEAN PLATELET VOLUME 9.3 FL (6.5-11.5); MONOCYTE# 0.6 X10e3 (0-1.0); NEUTROPHIL# 2.4 X10e3 (1.5-7.1); NEUTROPHIL% 45.7 % (40-75); PLATELET COUNT 263 X10e3 (140-420); RED BLOOD COUNT 3.63 X10e (3.90-5.30); RED CELL DISTRIBUTION WIDTH 13.4 % (11.0-15.5); WHITE BLOOD COUNT 5.3 X10e3 (4.0-10.5)
[2016-07-29 11:22] LABS: DIFF IND NO
[2016-07-29 11:40] LABS: ALBUMIN SERUM 3.3 g/dL (3.5-5.0); CALCIUM SERUM 8.7 mg/dL (8.4-10.2); CREATININE SERUM 0.8 mg/dL (0.6-1.4); GLOM FILT RATE Estimated 113.2 mL/min (>60); POTASSIUM 3.5 mmol/L (3.5-5.1); PROTEIN TOTAL SERUM 5.9 g/dL (6.0-8.3)
[2016-07-29 11:43] LABS: THYROID STIMULATING HORMONE 0.54 uIU/ml (0.34-5.60)
[2016-07-29 11:50] LABS: FREE THYROXIN (T4) 0.75 ng/dL (0.58-1.64)
== END 2016-08-10 12:20 | disposition home or self-care (01) | DRG 885 ==
LOC: P1S 14:12
PROVIDERS: Psychiatry & Neurology Psychiatry
DX: F20.0 Paranoid schizophrenia (principal); F39 Unspecified mood [affective] disorder; F31.9 Bipolar disorder, unspecified; J06.9 Acute upper respiratory infection, unspecified; Z81.4 Family history of other substance abuse and dependence; K59.00 Constipation, unspecified
CPT/HCPCS: 80053; 84439; 84443; 84703; 85025; J0515; J1630; J2060; J3230

== ENCOUNTER 2016-08-11 19:17 | Inpatient (IN) | payer OTHER ==
--- NOTE | ~2016-08-11 | HP ---
Unit #: [id number] #: [id number] Patient: GAUDENCIO RODRIGUEZ [id number] [facility] [address] [place] [address] [id number] I MR#: [id number] NAME: GAUDENCIO RODRIGUEZ ROOM: P130 Age: 30 Sex: F Admission Date: 08/11/2016 : 1985 Attending Physician: Berhane Lord M.D. Admitting Physician: Berhane Lord M.D. Primary Care Physician: Primary Care Physician No HISTORY AND PHYSICAL HISTORY OF PRESENT ILLNESS Gaudencio is a 30-year-old female admitted 08/11/[address] [place] [address] for auditory hallucinations and suicidal ideation. She had a recent admission on 07/28/2016. I reviewed that history and physical and there are no changes. Dictated by..Artem Polanco/odell TD: 08/12/2016 20:29 JOB #: [id number] HISTORY AND PHYSICAL Page 1 of 1 X VENESSA FIGUEROA APRN HISTORY AND PHYSICAL
--- NOTE | ~2016-08-11 | PN ---
Unit #: [id number] #: [id number] Patient: GAUDENCIO GIRALDO [id number] [facility] [address] [place] [address] [id number] I MR#: [id number] NAME: GAUDENCIO GIRALDO ROOM: P130 Age: 30 Sex: F Admission Date: 08/11/2016 : 1985 Attending Physician: Berhane Lord M.D. Admitting Physician: Berhane Lord M.D. Primary Care Physician: Primary Care Physician Idalia CULVER PROGRESS NOTES DATE 08/06/2016 DISCUSSION Ms. Gaudencio Giraldo is a 30-year-old female, seen on 08/13/2016. The patient interviewed, chart reviewed, and obtained information from the nursing staff. The patient continues to report hearing voices, seeing demons, suicidal ideation, but compliant and cooperative, somewhat calmer, combined with medication maintained safe behavior on the unit, isolative in room, medication compliant. Vital signs stable, 97.5, 99, 14, and 98/62. REVIEW OF SYSTEMS Complete review of systems unremarkable. MENTAL STATUS EXAMINATION General appearance: Patient dressed casually. Attention span and concentration, poor. Oriented to place and person. Mood and affect, labile. Speech, rapid. Thought process, circumstantial. The patient denied any thoughts of harming self or others but guarded but reported hearing things, seeing things. Recent and remote memory, poor. Insight and judgment, poor. DIAGNOSES 1. Schizophrenia, chronic paranoid type. 2. Mood disorder, NOS. ASSESSMENT/PLAN Advised to continue with the current medication and therapeutic protocol and if needed consider adjustment of medication. Dictated by... Drea Johnson/jasmina TD: 08/14/2016 08:10 JOB #: [id number] Unit #: [id number] #: [id number] Patient: GAUDENCIO GIRALDO [facility] PROGRESS NOTES Page 1 of 1 X Berhane Lord MD PROGRESS NOTE
--- NOTE | ~2016-08-11 | PN ---
Unit #: [id number] #: [id number] Patient: GAUDENCIO GIRALDO [id number] [facility] [address] [place] [address] [id number] I MR#: [id number] NAME: GAUDENCIO GIRALDO ROOM: P130 Age: 30 Sex: F Admission Date: 08/11/2016 : 1985 Attending Physician: Berhane Lord M.D. Admitting Physician: Berhane Lord M.D. Primary Care Physician: Primary Care Physician Idalia ENRIQUEZ NOTES DATE OF SERVICE: 08/12/2016 DISCUSSION Gaudencio Giraldo is a 30-year-old female, seen on 08/12/2016. The patient interviewed, chart reviewed, and obtained information from nursing staff. The patient was compliant, cooperative, but still guarded paranoid. Mood lability, flat, sad and dysphoric mood. Complete review of systems unremarkable. MENTAL STATUS EXAMINATION General appearance, the patient dressed casually. Attention span and concentration, fair. Oriented in place and person. Mood and affect, sad, dysphoric. Flat affect, guarded paranoid, attending to internal stimuli. Reported having thoughts of harming self. Recent and remote memory, poor. Insight and judgment, poor. DIAGNOSIS Schizophrenia, chronic paranoid type. ASSESSMENT AND PLAN Advised to resume the patient's medication. Continue with Clozaril 200 mg at bedtime and Clozaril 100 mg in the morning, Topamax 100 mg t.i.d., Thorazine 100 mg t.i.d., Minipress 1 mg at bedtime, trazodone 100 mg at bedtime, lisinopril 10 mg at bedtime, Colace 100 mg b.i.d., and MiraLAX 17 g b.i.d. If needed, consider further adjustment of medication. Continue with the inpatient programing at this time. Dictated by... Drea Johnson/maeve TD: 08/12/2016 19:52 JOB #: [id number] Unit #: [id number] #: [id number] Patient: GAUDENCIO GIRALDO [facility] PROGRESS NOTES Page 1 of 1 X Berhane Lord MD NOTE
--- NOTE | ~2016-08-11 | DS ---
Unit #: [id number] #: [id number] Patient: GAUDENCIO RODRIGUEZ [id number] [place] [address] [id number] I MR#: [id number] NAME: GAUDENCIO RODRIGUEZ ROOM: P130 Age: 30 Sex: F Admission Date: 08/11/2016 : 1985 Discharge Date: 08/14/2016 Attending Physician: Berhane Lord M.D. Primary Care Physician: Primary Care Physician No DISCHARGE SUMMARY REASON FOR ADMISSION Psychosis. DIAGNOSTIC STUDIES LABORATORY RESULTS: Unremarkable. HOSPITAL COURSE The patient was admitted to inpatient unit on 08/11/2016 and discharged on 08/14/2016. The patient was treated with group therapy, individual therapy, and medication management. The patient responded well with the above modalities of treatment. Subsequently, the patient was discharged with a plan to follow up in outpatient program. DISCHARGE MEDICATIONS Clozaril 200 mg at bedtime and 100 mg in the morning for psychosis, Topamax 100 mg t.i.d. for mood stabilization, Minipress 1 mg at bedtime for night terror, trazodone 100 mg at bedtime for sleep, Lexapro 10 mg daily for depression, Colace 100 mg b.i.d. for constipation, and MiraLAX 17 g b.i.d. for constipation. The patient was discharged on two antipsychotics as the patient did not do well with one. Plan to taper off Thorazine over the next 6 months. The patient is currently on Clozaril. DISCHARGE DIAGNOSES Psychiatric: Schizophrenia, chronic paranoid type, F20.0. Secondary diagnosis: Deferred. Medical diagnosis: Constipation. Stressors: Psychosocial stressor. DISCHARGE INSTRUCTIONS The patient to follow up in outpatient clinic as per manager social responsibility. CONDITION ON DISCHARGE The patient was pleasant and cooperative. PROGNOSIS Guarded. DIET AND ACTIVITY As tolerated. Unit #: [id number] #: [id number] Patient: GAUDENCIO RORDIGUEZ Dictated by... Drea Johnson/maeve TD: 08/14/2016 18:12 JOB #: [id number] DISCHARGE SUMMARY Page 1 of 1 X Berhane Lord MD DISCHARGE SUMMARY
--- NOTE | ~2016-08-11 | PA ---
Unit #: [id number] #: [id number] Patient: GAUDENCIO RODRIGUEZ [id number] [facility] [address] [place] [address] [id number] I MR#: [id number] NAME: GAUDENCIO RODRIGUEZ ROOM: P130 Age: 30 Sex: F Admission Date: 08/11/2016 : 1985 Date of Assessment: Attending Physician: Berhane Lord M.D. Admitting Physician: Berhane Lord M.D. Primary Care Physician: Primary Care Physician No PSYCHIATRIC ASSESSMENT INFORMANTS The patient reliability, fair informant; chart reliability, good. CHIEF COMPLAINT Hearing voices and thoughts of harming self. HISTORY OF PRESENT ILLNESS Gaudencio Rodriguez is a 30-year-old female, presented with the above-mentioned complaint. The patient diagnosed with schizoaffective disorder, drug dependence. The patient reported having suicidal ideation. Reported voices telling her to harm herself, hearing voices, seeing demons. The patient reported previously she was going to [facility]. The patient reported using marijuana. Denied any recent stressors. Lives with her mother. Reports that she has conflict with her mother. The patient reported losing her grandmother 2 years ago. The patient has a history of multiple admission in the past. Currently, reporting suicidal ideation with a plan to jump off the bridge. The voices are command in nature, visual hallucination. Needing inpatient admission at this time for psychiatric stabilization. PAST PSYCHIATRIC HISTORY Remarkable for history of numerous treatments, last admission on 07/28/2016. FAMILY HISTORY AND SOCIAL HISTORY The patient lives with her mother and good support. History of substance abuse in the family. No known history of any abuse. MEDICAL HISTORY Unremarkable for any chronic medical illness except for constipation. Musculoskeletal; muscle strength and tone, no atrophy or abnormal movement. Gait normal. MEDICATION HISTORY The patient is currently on Colace 100 mg b.i.d., Thorazine 100 mg q.4 hours p.r.n. for agitation and psychosis, Lexapro 10 mg at bedtime, Desyrel 100 mg at bedtime, Minipress 1 mg at bedtime, Clozaril 100 mg in the morning and 200 mg at bedtime, Thorazine 100 mg t.i.d. ALLERGIES No known drug allergies. SUBSTANCE ABUSE HISTORY Unit #: [id number] #: [id number] Patient: GAUDENCIO RODRIGUEZ None except for marijuana. REVIEW OF SYSTEMS HEENT: Eyes, clear. Ears, nose, mouth, and throat; clear. CARDIOVASCULAR: Unremarkable. RESPIRATORY: Unremarkable. GI: Unremarkable. : Unremarkable. SKIN: Unremarkable. LYMPH NODE: Unremarkable. NEUROLOGIC: Unremarkable. ENDOCRINE: Unremarkable. HEMATOLOGIC: Unremarkable. ALLERGIC/IMMUNOLOGIC: Unremarkable. MUSCULOSKELETAL: Muscle strength and tone, no atrophy or abnormal movement. Gait normal. MENTAL STATUS EXAMINATION CONSTITUTIONAL: Measurement of vital signs; temperature 97.9, pulse 90, respiratory rate 16, oxygen saturation 100%, blood pressure 104/65, height 5 feet 11 inches, weight 168 pounds. GENERAL APPEARANCE: Hygiene and grooming, fair. The patient did not show any facial deformity. MUSCULOSKELETAL: Please see above. PSYCHIATRIC EXAMINATION Description of speech; rapid. Description of thought process, circumstantial. Description of association, guarded and paranoid, reported hallucination, suicidal thoughts. Description of the patient's judgment, concerning everyday activity, poor; social situation, poor; concerning psychiatric condition, poor. Complete mental status examination; oriented in time, place, and person. Attention span and concentration, fair. Language, able to name object and repeat phrases. Fund of knowledge, aware of current event and passive vocabulary intact. Mood and affect, sad and dysphoric. Insight and judgment, fair to poor. ASSETS AND LIABILITIES Assets, the patient is articulate and able to take care of her ADL. Liability, history of depression, schizophrenia. ADMITTING DIAGNOSES Psychiatric: Schizophrenia, chronic, paranoid type, F20.0; rule out schizoaffective disorder, bipolar type, F25.9. Secondary diagnosis: Deferred. Medical diagnosis: Constipation. Stressors: Psychosocial stressors. PSYCHIATRIC PLAN AND TREATMENT GOAL 1. Advised to admit the patient on the inpatient unit. Provide safe, supportive, and structured environment. 2. Ordered labs; CBC, CMP, UA, and UDS. 3. Advised to continue with home medication. If needed, consider further adjustment of medication. The patient to be monitored for aggression, Unit #: [id number] #: [id number] Patient: GAUDENCIO RODRIGUEZ self-harm, and psychosis. 4. The patient to attend all the programing on the inpatient unit, group therapy, individual therapy, medication management. DISCHARGE PLAN Plan to stabilize the patient and consider followup in outpatient program. ESTIMATED LENGTH OF STAY 2 weeks. Dictated by... Drea Johnson/maeve TD: 08/13/2016 07:21 JOB #: [id number] PSYCHIATRIC ASSESSMENT Page 1 of 1 X Berhane Lord MD PSYCHIATRIC ASSESSMENT
[2016-08-12 11:24] LABS: BASOPHIL% 0.4 % (0-2.5); EOSINOPHIL# 0.7 X10e3 (0-0.7); EOSINOPHIL% 6.2 % (0.0-7.0); HEMATOCRIT 37.9 % (35.0-45.0); HEMOGLOBIN 12.5 gm/dL (12.0-16.0); LYMPHOCYTE# 1.9 X10e3 (1.0-3.5); LYMPHOCYTE% 16.9 % (17.0-45.0); MEAN CELL VOLUME 93.1 FL (83-96); MEAN CORPUSCULAR HEMOGLOBIN 30.6 PG (28-34); MEAN CORPUSCULAR HGB CONC 32.9 g/dL (30-36); MEAN PLATELET VOLUME 9.1 FL (6.5-11.5); MONOCYTE# 1.1 X10e3 (0-1.0); NEUTROPHIL# 7.4 X10e3 (1.5-7.1); NEUTROPHIL% 66.5 % (40-75); PLATELET COUNT 350 X10e3 (140-420); RED BLOOD COUNT 4.07 X10e (3.90-5.30); WHITE BLOOD COUNT 11.1 X10e3 (4.0-10.5)
[2016-08-12 11:25] LABS: DIFF IND NO
== END 2016-08-14 10:30 | disposition home or self-care (01) | DRG 885 ==
LOC: P1S 19:17
PROVIDERS: Psychiatry & Neurology Psychiatry
DX: F20.0 Paranoid schizophrenia (principal); K59.00 Constipation, unspecified
CPT/HCPCS: 84703; 85025